=== PATIENT | male | born 1965 | race Caucasian/White ===

== ENCOUNTER 2019-10-24 15:20 | Emergency (ER) | payer OTHER ==
[~2019-10-24] VITALS: Ht 172.7 cm; Wt 134.4 kg
[~2019-10-24 15:20] MED LIST: LIRA0.6P2 SQ; LISI40TA PO; METF10007 PO
[2019-10-24 15:30] VITALS: BP 135/62
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
[2019-10-24] MEDS ORDERED: IBUPROFEN 600 MG TABLET. PO ONE (15:45)
--- NOTE | 2019-10-24 16:15 | RAD ---
Study: WRIST 3V RIGHT Indication: Pain. Comparison: 03/24/2014 Findings: No acute fracture. Slight prominence of the scapholunate interval is unchanged from 2014. Unremarkable distal radioulnar joint and visualized hand. Impression: No acute fracture or traumatic malalignment seen at the right wrist. Electronically signed by: LORNA DIETZ MD (10/24/2019 4:13 PM) [id number]
--- NOTE | 2019-10-24 16:17 | RAD ---
Study: HIP LEFT 2 VIEW Indication: Pain. Comparison: None. Findings: Hip alignment is maintained. No acute fracture seen at the left hip joint. Portions of the pelvis are not well evaluated due to overlying soft tissues. No radiopaque foreign body seen within the regional soft tissues. Impression: No acute fracture or malalignment seen at the left hip. Electronically signed by: LORNA DIETZ MD (10/24/2019 4:13 PM) [id number]
--- NOTE | 2019-10-24 16:19 | RAD ---
Study: CLAVICLE LEFT Indication: Pain. Comparison: None. Findings: No acute fracture seen to involve the left clavicle. Blunted and irregular margins at the AC joint could be degenerative or the sequela of prior surgery. No gross malalignment at the glenohumeral interface. The visualized ribs and partially visualized scapula are grossly intact. Impression: No acute osseous abnormality. Electronically signed by: LORNA DIETZ MD (10/24/2019 4:15 PM) [id number]
[2019-10-24] MEDS ORDERED: IBUP800T19 PO (16:25)
[2019-10-24] MEDS ORDERED: CYCL-331 PO (16:25)
== END 2019-10-24 16:30 | disposition home or self-care (01) ==
LOC: ER 15:20
DX: M25.531 Pain in right wrist (principal); M25.552 Pain in left hip; M25.512 Pain in left shoulder; J45.909 Unspecified asthma, uncomplicated; E11.9 Type 2 diabetes mellitus without complications; I10 Essential (primary) hypertension; Z90.89 Acquired absence of other organs; V89.2XXA Person injured in unspecified motor-vehicle accident, traffic, initial encounter; Y93.89 Activity, other specified; Y92.89 Other specified places as the place of occurrence of the external cause; Y99.8 Other external cause status
CPT/HCPCS: 73000; 73110; 73502; 99284

== ENCOUNTER → 2019-11-16 | Outpatient (CLI) | payer OTHER ==
[2019-10-24 15:30] VITALS: BP 135/62
[~2019-11-16] MED LIST changes: +CYCL-331 PO; +IBUP800T19 PO
--- NOTE | 2019-11-16 17:54 | RAD ---
HAND LEFT 3V History: Left hand pain. No evidence of acute fracture. No aggressive bone destruction. Joint spaces and alignment appear intact. No significant soft tissue abnormality. IMPRESSION: No evidence of acute radiographic abnormality. Electronically signed by: Jones Ruelas MD (11/16/2019 5:50 PM) [id number]
== END | disposition home or self-care (01) ==
LOC: RAD 15:00
PROVIDERS: ATTEND Physician Assistant
DX: M79.642 Pain in left hand (principal)
CPT/HCPCS: 73130